=== PATIENT | male | born 1990 | race Caucasian/White ===

== ENCOUNTER 2017-02-27 19:02 | Emergency (ER) | payer BC ==
[~2017-02-27 19:02] MED LIST: AMOXICILLIN500 MG PO; CATAFLAM50 MG PO; FLAGYL500 MG PO; KENALOG 0.1%80 GM PO; MEDROL DOSEPAK4 MG PO; MOTRIN800 MG PO; NKHM; NORFLEX100 MG PO; TRAMADOL HCL50 MG PO; WYMOX500 MG PO; ZANTAC 150150 MG PO; ZITHROMAX Z PA250 MG PO; ZOFRAN ODT4 MG SL; ZYRTEC10 M1 PO
[2017-02-27] MEDS ORDERED: AUGMENTIN 875875 MG PO (19:21)
[2017-02-27] MEDS ORDERED: ZYRTEC10 MG PO (19:21)
[2017-02-27] MEDS ORDERED: FLONASE ALLERG9.9 ML NS (19:21)
== END 2017-02-27 19:28 | disposition home or self-care (01) ==
LOC: ED 19:02
DX: J01.90 Acute sinusitis, unspecified (principal); J40 Bronchitis, not specified as acute or chronic; F17.200 Nicotine dependence, unspecified, uncomplicated; Z91.030 Bee allergy status

== ENCOUNTER 2017-04-02 14:22 | Emergency (ER) | payer BC ==
[~2017-04-02] VITALS: Ht 177.8 cm; Wt 83.9 kg
[~2017-04-02 14:22] MED LIST changes: +AUGMENTIN 875875 MG PO; +FLONASE ALLERG9.9 ML NS; +ZYRTEC10 MG PO
[2017-04-02] MEDS ORDERED: AMOXICILLIN500 M3 PO (15:06)
[2017-04-02] MEDS ORDERED: ZOFRAN ODT4 MG SL (15:08)
== END 2017-04-02 15:25 | disposition home or self-care (01) ==
LOC: ED 14:22
DX: J01.90 Acute sinusitis, unspecified (principal); R11.10 Vomiting, unspecified; J02.9 Acute pharyngitis, unspecified; F17.200 Nicotine dependence, unspecified, uncomplicated; Z91.030 Bee allergy status

== ENCOUNTER 2017-08-07 23:04 | Emergency (ER) | payer BC ==
[~2017-08-07] VITALS: Ht 175.2 cm; Wt 86.2 kg
[~2017-08-07 23:04] MED LIST changes: +AMOXICILLIN500 M3 PO
[2017-08-07] MEDS ORDERED: AUGMENTIN 875875 MG PO (23:37)
== END 2017-08-07 23:55 | disposition home or self-care (01) ==
LOC: ED 23:04
DX: H66.91 Otitis media, unspecified, right ear (principal); F17.200 Nicotine dependence, unspecified, uncomplicated; Z91.030 Bee allergy status

== ENCOUNTER 2018-05-30 23:02 | Emergency (ER) | payer BC ==
[~2018-05-30] VITALS: Ht 177.8 cm; Wt 88.5 kg
[2018-05-30] MEDS ORDERED: OMNICEF300 MG PO (23:16)
== END 2018-05-30 23:52 | disposition home or self-care (01) ==
LOC: ED 23:02
DX: H66.93 Otitis media, unspecified, bilateral (principal); R05 Cough; R09.81 Nasal congestion; J02.9 Acute pharyngitis, unspecified; Z91.030 Bee allergy status

== ENCOUNTER 2019-09-03 12:17 | Emergency (ER) | payer BC ==
[~2019-09-03] VITALS: Wt 90.7 kg
[~2019-09-03 12:17] MED LIST changes: +OMNICEF300 MG PO
[2019-09-03] MEDS ORDERED: TAMIFLU 75MG CA75 MG PO (13:08)
[2019-09-03] MEDS ORDERED: AMOXICILLIN500 M3 PO (13:08)
== END 2019-09-03 12:56 | disposition home or self-care (01) ==
LOC: ED 12:17
DX: J10.1 Influenza due to other identified influenza virus with other respiratory manifestations (principal); F17.200 Nicotine dependence, unspecified, uncomplicated; Z91.030 Bee allergy status; Z79.2 Long term (current) use of antibiotics

== ENCOUNTER 2020-05-03 23:34 | Emergency (ER) | payer OTHER, BC ==
[~2020-05-03] VITALS: Ht 177.8 cm; Wt 90.7 kg
[~2020-05-03 23:34] MED LIST changes: +TAMIFLU 75MG CA75 MG PO
== END 2020-05-04 02:08 | disposition home or self-care (01) ==
LOC: ED 23:34
DX: S01.21XA Laceration without foreign body of nose, initial encounter (principal); F17.200 Nicotine dependence, unspecified, uncomplicated; Z91.030 Bee allergy status; V89.2XXA Person injured in unspecified motor-vehicle accident, traffic, initial encounter; Y93.89 Activity, other specified; Y92.89 Other specified places as the place of occurrence of the external cause; Y99.8 Other external cause status

== ENCOUNTER 2020-07-10 18:46 | Emergency (ER) | payer BC ==
[~2020-07-10] VITALS: Ht 177.8 cm; Wt 88.5 kg
[2020-07-10] MEDS ORDERED: PREDNISONE20 M1 PO (23:40)
[2020-07-10] MEDS ORDERED: PROVENTIL HFA6.7 GM INH (23:40)
== END 2020-07-10 23:50 ==
LOC: ED 18:46
DX: R05 Cough (principal); J02.9 Acute pharyngitis, unspecified; R09.89 Other specified symptoms and signs involving the circulatory and respiratory systems; Z20.828 Contact with and (suspected) exposure to other viral communicable diseases

== ENCOUNTER → 2021-09-07 | Outpatient (CLI) | payer BC ==
[~2021-09-07] MED LIST changes: +PREDNISONE20 M1 PO; +PROVENTIL HFA6.7 GM INH
== END | disposition home or self-care (01) ==
LOC: COVID19 15:35
PROVIDERS: ATTEND Student in an Organized Health Care Education/Training Program
DX: Z11.52 Encounter for screening for COVID-19 (principal)

== ENCOUNTER 2024-01-16 08:45 | Emergency (ER) | payer BC ==
[~2024-01-16] VITALS: Ht 177.8 cm; Wt 102.1 kg
[2024-01-16] MEDS ORDERED: AMOX-CLAV 875-1 EACH PO (09:14)
== END 2024-01-16 09:23 | disposition home or self-care (01) ==
LOC: ED 08:45
DX: J02.8 Acute pharyngitis due to other specified organisms (principal); Z91.030 Bee allergy status; Z98.890 Other specified postprocedural states